=== PATIENT | female | born 1980 | race Caucasian/White ===

== ENCOUNTER 2024-12-22 06:20 | Day surgery (SDC) | payer OTHER, SELFPAY ==
[2024-12-22] VITALS (9 sets, daily range): BP systolic 122–165; BP diastolic 76–110; PULSE 69–84; RESP 14–16; TEMP 36.5–36.9; O2SAT 96–100; BMI 31.4
[2024-12-22 07:00] LABS: Ur HCG Qualitative* Negative (Negative)
[2024-12-22] MEDS: SODIUM CHLORIDE 0.9 % (FLUSH) 10 ML SYRINGE IVF (07:00)
[2024-12-22] MEDS: LACTATED RINGERS 1000 ML 1,000 ML 100 ML IV (07:00)
[2024-12-22] MEDS: fentaNYL 100 MCG/2 ML inj IVP (07:16)
[2024-12-22] MEDS: MIDAZOLAM HCL 1 MG/ML inj IVP (07:16)
--- NOTE | 2024-12-22 07:28 | SUR.PREOP ---
TIME?OUT:?0716 PT/RN/MDA?VERIFICATION?OF?SURGICAL?SITE,?PROCEDURE,?AND?CONSENT OBTAINED?PRIOR?TO?INVASIVE?PROCEDURE.
[2024-12-22] MEDS: CLINDAMYCIN 900 MG/50 ML-D5W 900 MG/50 ML PIGGYBACK 100 MG IVPB (07:32)
[2024-12-22] MEDS: BUPIVACAINE 0.25% 30 ML INJECTION (08:04)
--- NOTE | 2024-12-22 08:30 | P.ANES_ITS ---
Anesthesia Charges Start Date/Time Anesthesia Start Date: 12/22/24 Anesthesia Start Time: 07:27 Stop Date/Time Anesthesia Stop Date: 12/22/24 Anesthesia Stop Time: 09:49 Coding CPT Codes CPT Codes: ANESTH LOWER LEG BONE SURG - 52612 ([id number]) P2 - PATIENT W/MILD SYST DISEASE, QK - MACHINE EGG WASHER 2-4 CNCRNT ANES PROC, QX - SALES SYSTEMS ENGINEER SVC W/ MD MED DIRECTION
--- NOTE | 2024-12-22 08:30 | W.ANESCHARGE ---
Anesthesia Charges Start Date/Time Anesthesia Start Date: 12/22/24 Anesthesia Start Time: 07:27 Stop Date/Time Anesthesia Stop Date: 12/22/24 Anesthesia Stop Time: 09:49 Coding CPT Codes CPT Codes: ANESTH LOWER LEG BONE SURG - 00997 ([id number]) P2 - PATIENT W/MILD SYST DISEASE, QK - EDUCATIONAL FUNDRAISING DIRECTOR 2-4 CNCRNT ANES PROC, QX - SERVER ENGINEER SVC W/ MD MED DIRECTION
--- NOTE | 2024-12-22 08:30 | W.PM.NB ---
Nerve Block Nerve Block Time Seen by Provider: 07:16 Date Seen: 12/22/24 Type of block requested by surgeon for post-operative analgesia: adductor canal Side: right Time out performed: Yes Verification of patient name: Yes Verification of date of : Yes Site marking: site marked Name of person performing procedure: Michael Continuous monitoring Was continuous monitoring of O2 sat, B/P, monitoring analyst, recorded every 15 minutes?: Yes Procedure Checklist: sterile prep, needles and gloves Ultrasound guided. Images saved: Yes Medications given in 5ml increments after negative aspiration: Marcaine %: 0.25 mL: 10 Needle gauge: 20 and Exparel mL: 5 Patient tolerated procedure well: Yes Block Charges Block Charge (with Pro Fee): Femoral Nerve Use of Ultrasound Machine for Block: Yes- US Guidance/pain block
--- NOTE | 2024-12-22 08:31 | W.PM.NB ---
Nerve Block Nerve Block Time Seen by Provider: 07:16 Date Seen: 12/22/24 Type of block requested by surgeon for post-operative analgesia: popliteal Side: right Time out performed: Yes Verification of patient name: Yes Verification of date of : Yes Site marking: site marked Name of person performing procedure: Michael Continuous monitoring Was continuous monitoring of O2 sat, B/P, property assessment monitor, recorded every 15 minutes?: Yes Procedure Checklist: sterile prep, needles and gloves Ultrasound guided. Images saved: Yes Medications given in 5ml increments after negative aspiration: Marcaine %: 0.25 mL: 10 Needle gauge: 20 and Exparel mL: 5 Patient tolerated procedure well: Yes Additional comments: Needle noted adjacent to nerve Block Charges Block Charge (with Pro Fee): Sciatic Nerve Use of Ultrasound Machine for Block: Yes- US Guidance/pain block
[2024-12-22] MEDS: dexAMETHasone 4 MG/ML VIAL IVP (09:09)
--- NOTE | 2024-12-22 09:46 | W.PODPROC_ITS ---
Date of Procedure: 12/22/24 Surgeon: Jossy Baeza DPM Co-Surgeon: Dr. Gomez Pre-op Diagnosis: 1. Bunion right foot 2. Pain right foot Post-op Diagnosis: 1. Bunion right foot 2. Pain right foot Type of Procedure: 1. First tarsometatarsal joint fusion, right foot 2. Bone graft harvest, right foot 3. Posterior Splint application, right lower extremity Procedure Description: The patient was brought to the operating room and placed in the supine position. After adequate regional anesthesia was confirmed, a well-padded ankle tourniquet was applied. The right foot was prepped and draped in sterile fashion. The foot was exsanguinated and the tourniquet was inflated to 250 mmHg. A 16-gauge needle with a syringe was introduced into the lateral calcaneal wall. Aspirate with morselized cancellous bone through negative pressure technique. Approximately 5 cc of viable autograft was obtained without complication. Hemostasis was achieved, and the harvest site was dressed appropriately. Attention was then directed along the dorsal forefoot where a dorsomedial longitudinal incision was made over the first TMT joint. Dissection was carried down through subcutaneous tissues. Care was taken to protect the dorsal cutaneous nerves. The capsule was incised and the first TMT joint was exposed. The base of the first metatarsal and medial cuneiform were prepared using the Lapiplasty instrumentation with resection of the joints taking a wedge along the medial cuneiform to correct for the increase in intermetatarsal angle. The joints were then prepped with a combination of hand held and power instruments. The previously obtained bone graft was then placed within the resected joint. The joint was then temporarily fixated and verified under radiographic imaging confirming reduction and proper joint apposition. The joint was then fixated with two crossing titanium Lapiplasty speed plates along the dorsal and medial 1st ray. Final fluoroscopy confirmed anatomic alignment and stable fixation.Triplanar correction was verified under fluoroscopic guidance using the clamp and alignment guides, ensuring correction of the intermetatarsal angle, rotation deformity, and maintaining a neutral sagittal plane. Attention was then turned to the medial eminence of the first metatarsal head, where a medial incision was made taking care to protect the deep neurovascular structures. The Capsule was incised and a wedge was removed from the redudent tissues. A medial 1st metatarsal head exostectomy was performed using a sagittal saw, taking care not to violate the metatarsal head articulation. Smooth contouring was achieved with a rasp. The surgical sites were copiously irrigated. The capsule and subcutaneous tissues were closed in layers with 3-0 Vicryl. The skin was closed with a combination of 3-0 and 4-0 nylon. A Sterile, non-adherent dressings were placed over the surgical incision. Multiple layers of soft sterile gauze and cast padding were wrapped around the foot and lower leg to provide uniform compression and minimize swelling. A well-molded posterior fiberglass splint was applied, extending from the plantar aspect of the foot to just below the knee, with the ankle positioned in slight dorsiflexion and neutral alignment. The foot was elevated, and neurovascular status remained intact post- application. Anesthesia: MAC and local Hemostasis: ankle (104 min of ankle TQ at 250mmHg) Estimated blood loss (mL): 15 Provider Operated C-arm: 4 min and 35 sec of c-arm fluro time operated by Dr. baeza for bunion surgery, Implants: Terace Lapiplasty speed plates x 2 Disposition: same day
--- NOTE | 2024-12-22 09:49 | P.ANES_ITS ---
Anesthesia Charges Start Date/Time Anesthesia Start Date: 12/22/24 Anesthesia Start Time: 07:27 Stop Date/Time Anesthesia Stop Date: 12/22/24 Anesthesia Stop Time: 09:49 Coding CPT Codes CPT Codes: ANESTH LOWER LEG BONE SURG - 40739 ([id number]) P2 - PATIENT W/MILD SYST DISEASE, QK - IRRIGATION SERVICE TECHNICIAN 2-4 CNCRNT ANES PROC, QX - PIPE FITTER SUPERVISOR MAINTENANCE SVC W/ MD MED DIRECTION
--- NOTE | 2024-12-22 09:49 | W.ANESCHARGE ---
Anesthesia Charges Start Date/Time Anesthesia Start Date: 12/22/24 Anesthesia Start Time: 07:27 Stop Date/Time Anesthesia Stop Date: 12/22/24 Anesthesia Stop Time: 09:49 Coding CPT Codes CPT Codes: ANESTH LOWER LEG BONE SURG - 41082 ([id number]) P2 - PATIENT W/MILD SYST DISEASE, QK - PREPARED FOODS TEAM LEADER 2-4 CNCRNT ANES PROC, QX - BURLAP SPREADER SVC W/ MD MED DIRECTION
[2024-12-22] MEDS: hydrOXYzine pamoate 25 MG CAPSULE PO (10:30)
[2024-12-22] MEDS: HYDROCODONE-ACETAMIN 5-325 MG 1 TAB PO (10:30)
== END 2024-12-22 11:30 | disposition home or self-care (01) ==
LOC: OR 06:26
PROVIDERS: Anesthesiology; Visit Provider Podiatrist
PROC: (CPT 28292; principal; 2024-12-22 07:30)
DX: M21.611 Bunion of right foot (principal); M79.671 Pain in right foot; G89.18 Other acute postprocedural pain
CPT/HCPCS: 28297; 20900; 01480; 64445; 64447; 73630; 76000; 76942; 81025; A9270; C1713; J0665; J0666; J0736; J1100; J1885; J2250; J2405; J2704; J3010; J3490; J7120